=== PATIENT | male | born 1965 | race Caucasian/White ===

== ENCOUNTER 2025-04-08 17:22 | Emergency (ER) | payer SELFPAY ==
[~2025-04-08] VITALS: Ht 205.7 cm; Wt 96.8 kg
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
[2025-04-08] MEDS: bacitracin 15gm ointment TP ONE (17:54)
[2025-04-08] MEDS: ondansetron 4mg rapidly disintigrating tab PO ONE (17:55)
[2025-04-08 18:04] VITALS: BP 161/52; PULSE 125; RESP 22; TEMP 98.5; O2SAT 92
== END 2025-04-08 18:10 ==
LOC: ER 17:23
DX: Z04.1 Encounter for examination and observation following transport accident (principal); I10 Essential (primary) hypertension; V89.2XXA Person injured in unspecified motor-vehicle accident, traffic, initial encounter; Y92.410 Unspecified street and highway as the place of occurrence of the external cause; Y93.89 Activity, other specified; Y99.8 Other external cause status
CPT/HCPCS: 99284; A6449